=== PATIENT | female | born 1950 | race Caucasian/White ===

== ENCOUNTER → 2017-02-28 | Outpatient (CLI) | payer MEDICARE, MEDICAID ==
[~2017-02-28] MED LIST: CYANOCOBAL1000 MCG/M SC; DAYPRO600 M1 PO; GABAPENTIN300 MG PO; LEVOTHYROXIN0.137 MG PO; LISINOPRIL10 MG PO; MOTRIN800 MG PO; Motrin,Rufen800 MG PO; PREDNICOT20 MG PO; ROBAXIN750 MG PO; SYNTHROID,LEV100 MCG PO; ULTRAM50 MG PO; VICODIN 500 MG-1 TAB PO; VITAMIN D32000 IU PO; VOLTAREN50 M1 PO; ZITHROMAX Z PA250 MG PO
[2017-02-28 11:05] LABS: HEMATOCRIT 43.1 % (37.0-47.0); HEMOGLOBIN 13.5 g/dl (12.0-16.0); MEAN CORPUSCULAR HGB 28.2 pg (27.0-31.0); MEAN CORPUSCULAR HGB CONC 31.3 g/dl (33.0-37.0); MEAN PLATELET VOLUME 10.9 fl (9.6-12.3); RED BLOOD COUNT 4.79 10*6/uL (4.10-5.10); RED CELL DISTRI WIDTH 13.9 % (0-14.5)
[2017-02-28 11:21] LABS: ALBUMIN 3.6 gm/dl (3.1-4.5); ALKALINE PHOSPHATASE 71 U/L (45-117); BUN 15 mg/dl (7-24); CHLORIDE 108 mmol/L (98-107); CHOLESTEROL 172 mg/dL (<200); CREATININE 0.79 mg/dL (0.55-1.02); FREE T4 0.92 ng/dl (0.76-1.46); HDL CHOLESTEROL 47 mg/dl (40-60); LDL CHOLESTEROL 96 mg/dL (9-159); POTASSIUM 4.2 mmol/L (3.5-5.1); SGOT/AST 23 IU/L (3-35); SGPT/ALT 33 U/L (12-78); SODIUM 144 mmol/L (136-145); TRIGLYCERIDES 146 mg/dl (<150); VLDL CHOLESTEROL 29 mg/dL (6-40)
[2017-02-28 12:49] LABS: VITAMIN D, 25-HYDROXY 9.8 ng/mL (30-100)
== END | disposition home or self-care (01) ==
LOC: LAB 10:34
PROVIDERS: Family Medicine
DX: I10 Essential (primary) hypertension (principal); E03.9 Hypothyroidism, unspecified; E78.00 Pure hypercholesterolemia, unspecified; E55.9 Vitamin D deficiency, unspecified; E53.8 Deficiency of other specified B group vitamins

== ENCOUNTER → 2018-05-04 | Outpatient (CLI) | payer MEDICARE ==
[2018-05-04 09:47] LABS: HEMATOCRIT 41.9 % (37.0-47.0); HEMOGLOBIN 13.1 g/dl (12.0-16.0); MEAN CELL VOLUME 92.1 fl (81.0-99.0); MEAN CORPUSCULAR HGB 28.8 pg (27.0-31.0); MEAN CORPUSCULAR HGB CONC 31.3 g/dl (33.0-37.0); MEAN PLATELET VOLUME 11.1 fl (9.6-12.3); RED BLOOD COUNT 4.55 10*6/uL (4.10-5.10); RED CELL DISTRI WIDTH 14.1 % (0-14.5); WHITE BLOOD COUNT 7.5 10*3/uL (4.8-10.8)
[2018-05-04 10:18] LABS: ALBUMIN 3.4 gm/dl (3.1-4.5); BUN 20 mg/dl (7-24); CHLORIDE 107 mmol/L (98-107); CHOLESTEROL 166 mg/dL (<200); CREATININE 0.84 mg/dL (0.55-1.02); POTASSIUM 4.2 mmol/L (3.5-5.1); SGOT/AST 21 IU/L (3-35); SGPT/ALT 24 U/L (12-78); SODIUM 142 mmol/L (136-145)
[2018-05-04 10:24] LABS: ALKALINE PHOSPHATASE 75 U/L (45-117); FREE T4 1.16 ng/dl (0.76-1.46); HDL CHOLESTEROL 49 mg/dl (40-60); LDL CHOLESTEROL 95 mg/dL (9-159); TOTAL PROTEIN 7.1 gm/dL (6.4-8.2); TRIGLYCERIDES 112 mg/dl (<150); VLDL CHOLESTEROL 22 mg/dL (6-40)
== END | disposition home or self-care (01) ==
LOC: LAB 09:21
PROVIDERS: Family Medicine
DX: E03.9 Hypothyroidism, unspecified (principal); E55.9 Vitamin D deficiency, unspecified; E78.00 Pure hypercholesterolemia, unspecified; I10 Essential (primary) hypertension

== ENCOUNTER → 2019-04-23 | Outpatient (CLI) | payer MEDICARE ==
[2019-04-23 09:59] LABS: HEMATOCRIT 41.1 % (37.0-47.0); HEMOGLOBIN 12.4 g/dl (12.0-16.0); MEAN CELL VOLUME 93.6 fl (81.0-99.0); MEAN CORPUSCULAR HGB 28.2 pg (27.0-31.0); MEAN CORPUSCULAR HGB CONC 30.2 g/dl (33.0-37.0); MEAN PLATELET VOLUME 10.7 fl (9.6-12.3); RED BLOOD COUNT 4.39 10*6/uL (4.10-5.10); RED CELL DISTRI WIDTH 14.1 % (0-14.5); WHITE BLOOD COUNT 5.8 10*3/uL (4.8-10.8)
[2019-04-23 10:39] LABS: ALBUMIN 3.4 gm/dl (3.1-4.5); ALKALINE PHOSPHATASE 144 U/L (45-117); BUN 18 mg/dl (7-24); CHLORIDE 109 mmol/L (98-107); CHOLESTEROL 144 mg/dL (<200); CREATININE 0.79 mg/dL (0.55-1.02); SGOT/AST 12 IU/L (3-35); SGPT/ALT 23 U/L (12-78); SODIUM 144 mmol/L (136-145); TOTAL PROTEIN 6.9 gm/dL (6.4-8.2); TRIGLYCERIDES 78 mg/dl (<150); VLDL CHOLESTEROL 16 mg/dL (6-40)
[2019-04-23 10:40] LABS: HDL CHOLESTEROL 48 mg/dl (40-60); LDL CHOLESTEROL 80 mg/dL (9-159)
[2019-04-23 10:54] LABS: VITAMIN D, 25-HYDROXY 82.1 ng/mL (30-100)
== END | disposition home or self-care (01) ==
LOC: LAB 09:26
PROVIDERS: Nurse Practitioner Family
DX: E03.9 Hypothyroidism, unspecified (principal); D51.9 Vitamin B12 deficiency anemia, unspecified; E55.9 Vitamin D deficiency, unspecified

== ENCOUNTER → 2019-08-02 | Outpatient (CLI) | payer MEDICARE ==
[2019-08-02 11:35] LABS: HEMATOCRIT 42.4 % (37.0-47.0); MEAN CELL VOLUME 93.6 fl (81.0-99.0); MEAN CORPUSCULAR HGB 28.5 pg (27.0-31.0); MEAN CORPUSCULAR HGB CONC 30.4 g/dl (33.0-37.0); MEAN PLATELET VOLUME 10.6 fl (9.6-12.3); RED BLOOD COUNT 4.53 10*6/uL (4.10-5.10); RED CELL DISTRI WIDTH 13.7 % (0-14.5)
[2019-08-02 12:03] LABS: ALBUMIN 3.4 gm/dl (3.1-4.5); ALKALINE PHOSPHATASE 71 U/L (45-117); BUN 18 mg/dl (7-24); CHLORIDE 109 mmol/L (98-107); CREATININE 0.75 mg/dL (0.55-1.02); POTASSIUM 4.3 mmol/L (3.5-5.1); SGOT/AST 25 IU/L (3-35); SGPT/ALT 30 U/L (12-78); SODIUM 141 mmol/L (136-145); TOTAL PROTEIN 7.1 gm/dL (6.4-8.2)
[2019-08-02 12:11] LABS: FREE T4 1.17 ng/dl (0.76-1.46)
== END | disposition home or self-care (01) ==
LOC: LAB 11:12
PROVIDERS: Family Medicine
DX: E11.9 Type 2 diabetes mellitus without complications (principal); E55.9 Vitamin D deficiency, unspecified; E03.9 Hypothyroidism, unspecified

== ENCOUNTER → 2019-10-14 | Outpatient (CLI) | payer MEDICARE ==
[2019-10-14 11:41] LABS: ALBUMIN 3.4 gm/dl (3.1-4.5); ALKALINE PHOSPHATASE 79 U/L (45-117); BUN 15 mg/dl (7-24); CHLORIDE 110 mmol/L (98-107); CREATININE 0.86 mg/dL (0.55-1.02); POTASSIUM 4.6 mmol/L (3.5-5.1); SGOT/AST 14 IU/L (3-35); SGPT/ALT 20 U/L (12-78); SODIUM 140 mmol/L (136-145); TOTAL PROTEIN 6.9 gm/dL (6.4-8.2)
== END | disposition home or self-care (01) ==
LOC: LAB 10:23
PROVIDERS: Family Medicine
DX: I10 Essential (primary) hypertension (principal); E74.9 Disorder of carbohydrate metabolism, unspecified; Z79.899 Other long term (current) drug therapy

== ENCOUNTER → 2020-07-03 | Outpatient (CLI) | payer MEDICARE ==
[2020-07-03 11:09] LABS: HEMATOCRIT 44.4 % (37.0-47.0); MEAN CELL VOLUME 90.8 fl (81.0-99.0); MEAN CORPUSCULAR HGB 27.8 pg (27.0-31.0); MEAN CORPUSCULAR HGB CONC 30.6 g/dl (33.0-37.0); RED BLOOD COUNT 4.89 10*6/uL (4.10-5.10); RED CELL DISTRI WIDTH 13.7 % (0-14.5); WHITE BLOOD COUNT 5.1 10*3/uL (4.8-10.8)
[2020-07-03 11:37] LABS: ALBUMIN 3.5 gm/dl (3.1-4.5); BUN 12 mg/dl (7-24); CHLORIDE 109 mmol/L (98-107); CHOLESTEROL 143 mg/dL (<200); CREATININE 0.74 mg/dL (0.55-1.02); POTASSIUM 4.2 mmol/L (3.5-5.1); SGOT/AST 14 IU/L (3-35); SGPT/ALT 18 U/L (12-78); SODIUM 143 mmol/L (136-145); TOTAL PROTEIN 6.9 gm/dL (6.4-8.2); TRIGLYCERIDES 137 mg/dl (<150)
[2020-07-03 11:38] LABS: ALKALINE PHOSPHATASE 81 U/L (45-117); LDL CHOLESTEROL 77 mg/dL (9-159)
[2020-07-03 11:47] LABS: VITAMIN D, 25-HYDROXY 91.7 ng/mL (30-100)
== END | disposition home or self-care (01) ==
LOC: LAB 10:26
PROVIDERS: ATTEND Family Medicine
DX: I10 Essential (primary) hypertension (principal); E03.9 Hypothyroidism, unspecified; E55.9 Vitamin D deficiency, unspecified; E78.00 Pure hypercholesterolemia, unspecified; R53.83 Other fatigue

== ENCOUNTER 2020-07-17 09:07 | Emergency (ER) | payer MEDICARE ==
[~2020-07-17 09:07] MED LIST changes: -LISINOPRIL10 MG PO; +LISINOPRIL40 MG PO
[2020-07-17] MEDS ORDERED: PERCOCET 5-3251 EACH PO (12:46)
[2020-07-21] MEDS ORDERED: METFORMIN HYDR500 MG PO (11:39)
[2020-07-21] MEDS ORDERED: VITAMIN D250 MCG PO (11:40)
[2020-07-23] MEDS ORDERED: HYDROCODONE-AC1 EAC1 PO (12:10)
== END 2020-07-17 13:28 | disposition home or self-care (01) ==
LOC: ED 09:07
DX: S52.501A Unspecified fracture of the lower end of right radius, initial encounter for closed fracture (principal); I10 Essential (primary) hypertension; Z79.899 Other long term (current) drug therapy; Z88.5 Allergy status to narcotic agent; Z88.6 Allergy status to analgesic agent; Z90.49 Acquired absence of other specified parts of digestive tract; Z98.51 Tubal ligation status; Z98.890 Other specified postprocedural states; W01.0XXA Fall on same level from slipping, tripping and stumbling without subsequent striking against object, initial encounter; Y93.89 Activity, other specified; Y92.89 Other specified places as the place of occurrence of the external cause; Y99.8 Other external cause status

== ENCOUNTER → 2020-07-23 | Day surgery (SDC) | payer MEDICARE ==
[2020-07-21 12:19] LABS: BASO % 0.6 % (0.0-1.0); EOS # 0.2 10*3/uL (0.0-0.4); EOS % 2.6 % (1.0-4.0); HEMATOCRIT 40.9 % (37.0-47.0); LYMPH # 1.3 10*3/uL (1.3-4.4); LYMPH % 18.9 % (27.0-41.0); MEAN CELL VOLUME 90.3 fl (81.0-99.0); MEAN CORPUSCULAR HGB 27.8 pg (27.0-31.0); MEAN CORPUSCULAR HGB CONC 30.8 g/dl (33.0-37.0); MEAN PLATELET VOLUME 10.4 fl (9.6-12.3); MONO # 0.6 10*3/uL (0.1-1.0); NEUT # 4.6 10*3/uL (2.3-7.9); NEUT % 68.7 % (47.0-73.0); PLATELET COUNT AUTOMATED 235 10*3/uL (130-400); RED BLOOD COUNT 4.53 10*6/uL (4.10-5.10); RED CELL DISTRI WIDTH 14.2 % (0-14.5); WHITE BLOOD COUNT 6.7 10*3/uL (4.8-10.8)
[2020-07-21 12:34] LABS: BUN 13 mg/dl (7-24); CHLORIDE 108 mmol/L (98-107); CREATININE 0.79 mg/dL (0.55-1.02); POTASSIUM 4.2 mmol/L (3.5-5.1); SODIUM 143 mmol/L (136-145)
[~2020-07-23] VITALS: Ht 165.1 cm; Wt 106.1 kg
[~2020-07-23] MED LIST changes: +HYDROCODONE-AC1 EAC1 PO; +METFORMIN HYDR500 MG PO; +PERCOCET 5-3251 EACH PO; +VITAMIN D250 MCG PO
[2020-07-23 08:20] VITALS: BP 178/78
[2020-07-23 11:47] VITALS: BP 157/76
[2020-07-23 12:02] VITALS: BP 138/66
[2020-07-23 12:17] VITALS: BP 133/63
[2020-07-23 12:32] VITALS: BP 143/73
[2020-07-23 12:47] VITALS: BP 110/71
== END | disposition home or self-care (01) ==
LOC: SDC 07-21 08:00
PROVIDERS: ATTEND Orthopaedic Surgery
DX: S52.571A Other intraarticular fracture of lower end of right radius, initial encounter for closed fracture (principal); M85.80 Other specified disorders of bone density and structure, unspecified site; E03.9 Hypothyroidism, unspecified; I10 Essential (primary) hypertension; E11.9 Type 2 diabetes mellitus without complications; J45.909 Unspecified asthma, uncomplicated; E78.00 Pure hypercholesterolemia, unspecified; Z90.49 Acquired absence of other specified parts of digestive tract; Z90.89 Acquired absence of other organs; Z88.5 Allergy status to narcotic agent; Z88.8 Allergy status to other drugs, medicaments and biological substances; X58.XXXA Exposure to other specified factors, initial encounter; Y93.89 Activity, other specified; Y92.89 Other specified places as the place of occurrence of the external cause; Y99.8 Other external cause status; Z20.822 Contact with and (suspected) exposure to COVID-19

== ENCOUNTER → 2020-08-05 | Outpatient (CLI) | payer MEDICARE | END | disposition home or self-care (01) | LOC: RAD 00:15 | PROVIDERS: ATTEND Orthopaedic Surgery | DX: S52.571D Other intraarticular fracture of lower end of right radius, subsequent encounter for closed fracture with routine healing (principal); X58.XXXD Exposure to other specified factors, subsequent encounter ==

== ENCOUNTER → 2020-09-02 | Outpatient (CLI) | payer MEDICARE | END | disposition home or self-care (01) | LOC: RAD 00:32 | PROVIDERS: ATTEND Orthopaedic Surgery | DX: M81.0 Age-related osteoporosis without current pathological fracture (principal); M19.031 Primary osteoarthritis, right wrist; M25.831 Other specified joint disorders, right wrist; S52.571D Other intraarticular fracture of lower end of right radius, subsequent encounter for closed fracture with routine healing; Z98.890 Other specified postprocedural states; X58.XXXD Exposure to other specified factors, subsequent encounter ==

== ENCOUNTER → 2020-10-21 | Outpatient (CLI) | payer MEDICARE | END | disposition home or self-care (01) | LOC: ORTHO 00:16 | PROVIDERS: ATTEND Orthopaedic Surgery | DX: M19.031 Primary osteoarthritis, right wrist (principal); M81.8 Other osteoporosis without current pathological fracture; Z87.81 Personal history of (healed) traumatic fracture ==

== ENCOUNTER → 2020-11-10 | Outpatient (CLI) | payer MEDICARE | END | disposition home or self-care (01) | LOC: RAD 11-03 14:00 | PROVIDERS: ATTEND Orthopaedic Surgery | DX: M81.0 Age-related osteoporosis without current pathological fracture (principal); M85.80 Other specified disorders of bone density and structure, unspecified site; S52.571D Other intraarticular fracture of lower end of right radius, subsequent encounter for closed fracture with routine healing ==

== ENCOUNTER → 2020-11-13 | Outpatient (CLI) | payer MEDICARE ==
[2020-11-13 11:00] LABS: HEMATOCRIT 42.3 % (37.0-47.0); MEAN CELL VOLUME 91.2 fl (81.0-99.0); MEAN CORPUSCULAR HGB 28.4 pg (27.0-31.0); MEAN CORPUSCULAR HGB CONC 31.2 g/dl (33.0-37.0); MEAN PLATELET VOLUME 10.4 fl (9.6-12.3); RED BLOOD COUNT 4.64 10*6/uL (4.10-5.10); RED CELL DISTRI WIDTH 13.5 % (0-14.5); WHITE BLOOD COUNT 5.8 10*3/uL (4.8-10.8)
[2020-11-13 11:18] LABS: ALBUMIN 3.5 gm/dl (3.1-4.5); ALKALINE PHOSPHATASE 84 U/L (45-117); BUN 16 mg/dl (7-24); CHLORIDE 107 mmol/L (98-107); CHOLESTEROL 159 mg/dL (<200); CREATININE 0.79 mg/dL (0.55-1.02); FREE T4 1.18 ng/dl (0.76-1.46); LDL CHOLESTEROL 99 mg/dL (9-159); POTASSIUM 4.2 mmol/L (3.5-5.1); SGOT/AST 17 IU/L (3-35); SGPT/ALT 19 U/L (12-78); SODIUM 142 mmol/L (136-145); TOTAL PROTEIN 6.8 gm/dL (6.4-8.2); TRIGLYCERIDES 97 mg/dl (<150)
[2020-11-13 11:41] LABS: VITAMIN D, 25-HYDROXY 74.6 ng/mL (30-100)
== END | disposition home or self-care (01) ==
LOC: LAB 10:46
PROVIDERS: ATTEND Family Medicine
DX: I10 Essential (primary) hypertension (principal); E55.9 Vitamin D deficiency, unspecified; E03.9 Hypothyroidism, unspecified; M19.90 Unspecified osteoarthritis, unspecified site; R60.9 Edema, unspecified; E53.8 Deficiency of other specified B group vitamins

== ENCOUNTER 2021-02-23 17:23 | Emergency (ER) | payer MEDICARE | END 2021-02-23 20:21 | disposition home or self-care (01) | LOC: ED 17:23 | DX: S00.83XA Contusion of other part of head, initial encounter (principal); W18.39XA Other fall on same level, initial encounter; Y93.89 Activity, other specified; Y92.89 Other specified places as the place of occurrence of the external cause; Y99.8 Other external cause status ==

== ENCOUNTER → 2021-09-07 | Outpatient (CLI) | payer MEDICARE ==
[2021-09-07 10:08] LABS: HEMATOCRIT 43.2 % (37.0-47.0); MEAN CELL VOLUME 91.1 fl (81.0-99.0); MEAN CORPUSCULAR HGB 28.3 pg (27.0-31.0); MEAN PLATELET VOLUME 10.7 fl (9.6-12.3); RED BLOOD COUNT 4.74 10*6/uL (4.10-5.10); RED CELL DISTRI WIDTH 13.5 % (0-14.5); WHITE BLOOD COUNT 6.7 10*3/uL (4.8-10.8)
[2021-09-07 10:30] LABS: BUN 18 mg/dl (7-24); CHLORIDE 111 mmol/L (98-107); POTASSIUM 4.2 mmol/L (3.5-5.1); SGOT/AST 15 IU/L (3-35); SGPT/ALT 17 U/L (12-78); SODIUM 141 mmol/L (136-145)
[2021-09-07 10:38] LABS: ALKALINE PHOSPHATASE 70 U/L (45-117); CHOLESTEROL 133 mg/dL (<200); CREATININE 0.89 mg/dL (0.55-1.02); FREE T4 1.35 ng/dl (0.76-1.46); LDL CHOLESTEROL 70 mg/dL (9-159); TOTAL PROTEIN 6.5 gm/dL (6.4-8.2); TRIGLYCERIDES 112 mg/dl (<150)
[2021-09-07 11:05] LABS: VITAMIN D, 25-HYDROXY 78.9 ng/mL (30-100)
== END ==
LOC: LAB 09:42
PROVIDERS: ATTEND Family Medicine
DX: I10 Essential (primary) hypertension (principal); E11.9 Type 2 diabetes mellitus without complications; E03.9 Hypothyroidism, unspecified; E55.9 Vitamin D deficiency, unspecified; Z79.899 Other long term (current) drug therapy

== ENCOUNTER → 2021-12-20 | Outpatient (CLI) | payer MEDICARE ==
[2021-12-20 10:55] LABS: HEMATOCRIT 43.1 % (37.0-47.0); MEAN CELL VOLUME 93.7 fl (81.0-99.0); MEAN CORPUSCULAR HGB 29.3 pg (27.0-31.0); MEAN CORPUSCULAR HGB CONC 31.3 g/dl (33.0-37.0); MEAN PLATELET VOLUME 10.9 fl (9.6-12.3); RED BLOOD COUNT 4.6 10*6/uL (4.10-5.10); RED CELL DISTRI WIDTH 13.9 % (0-14.5)
[2021-12-20 11:14] LABS: BUN 15 mg/dl (7-24); CHLORIDE 111 mmol/L (98-107); CHOLESTEROL 150 mg/dL (<200); CREATININE 0.73 mg/dL (0.55-1.02); POTASSIUM 4.3 mmol/L (3.5-5.1); SGOT/AST 15 IU/L (3-35); SGPT/ALT 20 U/L (12-78); SODIUM 144 mmol/L (136-145); TRIGLYCERIDES 83 mg/dl (<150)
[2021-12-20 11:18] LABS: ALKALINE PHOSPHATASE 71 U/L (45-117); LDL CHOLESTEROL 91 mg/dL (9-159); TOTAL PROTEIN 6.7 gm/dL (6.4-8.2)
== END | disposition home or self-care (01) ==
LOC: LAB 10:28
PROVIDERS: ATTEND Family Medicine
DX: E74.9 Disorder of carbohydrate metabolism, unspecified (principal); E78.00 Pure hypercholesterolemia, unspecified; Z79.899 Other long term (current) drug therapy

== ENCOUNTER → 2022-01-19 | Outpatient (CLI) | payer MEDICARE | END | disposition home or self-care (01) | LOC: CARD 10:30 | PROVIDERS: ATTEND Family Medicine | DX: R06.09 Other forms of dyspnea (principal) ==

== ENCOUNTER → 2022-06-28 | Outpatient (CLI) | payer MEDICARE ==
[2022-06-28 11:22] LABS: HEMATOCRIT 42.1 % (37.0-47.0); MEAN CELL VOLUME 91.3 fl (81.0-99.0); MEAN CORPUSCULAR HGB 29.1 pg (27.0-31.0); MEAN CORPUSCULAR HGB CONC 31.8 g/dl (33.0-37.0); MEAN PLATELET VOLUME 10.8 fl (9.6-12.3); RED BLOOD COUNT 4.61 10*6/uL (4.10-5.10); RED CELL DISTRI WIDTH 13.8 % (0-14.5); WHITE BLOOD COUNT 6.1 10*3/uL (4.8-10.8)
[2022-06-28 12:09] LABS: ALKALINE PHOSPHATASE 66 U/L (46-116); BUN 17 mg/dl (9-23); CHLORIDE 106 mmol/L (98-107); CHOLESTEROL 163 mg/dL (<200); LDL CHOLESTEROL 101 mg/dL (9-159); POTASSIUM 4.2 mmol/L (3.4-5.1); SGPT/ALT 11 U/L (10-49); TOTAL PROTEIN 6.6 gm/dL (6.0-8.0); TRIGLYCERIDES 92 mg/dl (<150)
== END | disposition home or self-care (01) ==
LOC: LAB 10:54
PROVIDERS: ATTEND Family Medicine
DX: E74.9 Disorder of carbohydrate metabolism, unspecified (principal); E78.00 Pure hypercholesterolemia, unspecified; M19.90 Unspecified osteoarthritis, unspecified site; Z79.899 Other long term (current) drug therapy

== ENCOUNTER → 2022-12-12 | Outpatient (CLI) | payer MEDICARE ==
[2022-12-12 11:48] LABS: HEMATOCRIT 43.2 % (37.0-47.0); MEAN CELL VOLUME 94.3 fl (81.0-99.0); MEAN CORPUSCULAR HGB CONC 30.8 g/dl (33.0-37.0); MEAN PLATELET VOLUME 10.6 fl (9.6-12.3); RED BLOOD COUNT 4.58 10*6/uL (4.10-5.10); RED CELL DISTRI WIDTH 14.3 % (0-14.5); WHITE BLOOD COUNT 5.6 10*3/uL (4.8-10.8)
[2022-12-12 12:18] LABS: ALKALINE PHOSPHATASE 69 U/L (46-116); BUN 14 mg/dl (9-23); CHLORIDE 110 mmol/L (98-107); CHOLESTEROL 175 mg/dL (<200); FREE T4 1.07 ng/dl (0.89-1.76); LDL CHOLESTEROL 109 mg/dL (9-159); POTASSIUM 4.3 mmol/L (3.4-5.1); SGPT/ALT 16 U/L (10-49); TOTAL PROTEIN 6.6 gm/dL (6.0-8.0); TRIGLYCERIDES 97 mg/dl (<150)
== END | disposition home or self-care (01) ==
LOC: LAB 11:16
PROVIDERS: ATTEND Family Medicine
DX: E03.9 Hypothyroidism, unspecified (principal); E78.00 Pure hypercholesterolemia, unspecified; I10 Essential (primary) hypertension; G62.9 Polyneuropathy, unspecified

== ENCOUNTER → 2023-03-22 | Outpatient (CLI) | payer MEDICARE ==
[2023-03-22 11:53] LABS: MEAN CELL VOLUME 92.5 fl (81.0-99.0); MEAN CORPUSCULAR HGB 28.6 pg (27.0-31.0); MEAN CORPUSCULAR HGB CONC 30.9 g/dl (33.0-37.0); MEAN PLATELET VOLUME 10.7 fl (9.6-12.3); RED BLOOD COUNT 4.65 10*6/uL (4.10-5.10); RED CELL DISTRI WIDTH 14.2 % (0-14.5)
[2023-03-22 12:25] LABS: ALKALINE PHOSPHATASE 70 U/L (46-116); BUN 13 mg/dl (9-23); CHLORIDE 110 mmol/L (98-107); CHOLESTEROL 141 mg/dL (<200); FREE T4 1.14 ng/dl (0.89-1.76); LDL CHOLESTEROL 83 mg/dL (9-159); POTASSIUM 4.2 mmol/L (3.4-5.1); SGPT/ALT 13 U/L (5-49); TOTAL PROTEIN 6.4 gm/dL (6.0-8.0); TRIGLYCERIDES 103 mg/dl (<150)
[2023-03-22 12:35] LABS: VITAMIN D, 25-HYDROXY 48.2 ng/mL (30-100)
== END | disposition home or self-care (01) ==
LOC: LAB 11:22
PROVIDERS: ATTEND Family Medicine
DX: I10 Essential (primary) hypertension (principal); E78.00 Pure hypercholesterolemia, unspecified; E55.9 Vitamin D deficiency, unspecified; R53.83 Other fatigue; D51.9 Vitamin B12 deficiency anemia, unspecified; E03.9 Hypothyroidism, unspecified

== ENCOUNTER → 2023-07-26 | Outpatient (CLI) | payer MEDICARE ==
[2023-07-26 10:07] LABS: HEMATOCRIT 42.3 % (37.0-47.0); MEAN CORPUSCULAR HGB 29.1 pg (27.0-31.0); MEAN PLATELET VOLUME 10.4 fl (9.6-12.3); RED BLOOD COUNT 4.5 10*6/uL (4.10-5.10); RED CELL DISTRI WIDTH 13.8 % (0-14.5)
[2023-07-26 10:54] LABS: ALKALINE PHOSPHATASE 73 U/L (46-116); BUN 12 mg/dl (9-23); CHLORIDE 107 mmol/L (98-107); CHOLESTEROL 177 mg/dL (<200); FREE T4 1.23 ng/dl (0.89-1.76); LDL CHOLESTEROL 107 mg/dL (9-159); POTASSIUM 4.3 mmol/L (3.4-5.1); SGPT/ALT 14 U/L (5-49); TOTAL PROTEIN 6.5 gm/dL (6.0-8.0); TRIGLYCERIDES 144 mg/dl (<150)
== END | disposition home or self-care (01) ==
LOC: LAB 09:46
PROVIDERS: ATTEND Family Medicine
DX: I10 Essential (primary) hypertension (principal); E78.00 Pure hypercholesterolemia, unspecified; E74.9 Disorder of carbohydrate metabolism, unspecified; G60.9 Hereditary and idiopathic neuropathy, unspecified; E03.9 Hypothyroidism, unspecified

== ENCOUNTER → 2023-12-13 | Outpatient (CLI) | payer MEDICARE ==
[2023-12-13 12:16] LABS: HEMATOCRIT 41.8 % (37.0-47.0); MEAN CELL VOLUME 91.1 fl (81.0-99.0); MEAN CORPUSCULAR HGB 28.5 pg (27.0-31.0); MEAN CORPUSCULAR HGB CONC 31.3 g/dl (33.0-37.0); MEAN PLATELET VOLUME 10.5 fl (9.6-12.3); RED BLOOD COUNT 4.59 10*6/uL (4.10-5.10); RED CELL DISTRI WIDTH 13.6 % (0-14.5); WHITE BLOOD COUNT 5.5 10*3/uL (4.8-10.8)
[2023-12-13 13:41] LABS: ALKALINE PHOSPHATASE 84 U/L (46-116); BUN 14 mg/dl (9-23); CHLORIDE 106 mmol/L (98-107); CHOLESTEROL 141 mg/dL (<200); LDL CHOLESTEROL 85 mg/dL (9-159); SGPT/ALT 17 U/L (5-49); TOTAL PROTEIN 6.7 gm/dL (6.0-8.0); TRIGLYCERIDES 86 mg/dl (<150)
== END | disposition home or self-care (01) ==
LOC: LAB 11:54
PROVIDERS: ATTEND Family Medicine
DX: I10 Essential (primary) hypertension (principal); E78.00 Pure hypercholesterolemia, unspecified; E74.9 Disorder of carbohydrate metabolism, unspecified; Z79.899 Other long term (current) drug therapy

== ENCOUNTER → 2024-06-05 | Outpatient (CLI) | payer MEDICARE ==
[2024-06-05 11:29] LABS: HEMATOCRIT 43.1 % (37.0-47.0); MEAN CELL VOLUME 93.3 fl (81.0-99.0); MEAN CORPUSCULAR HGB 28.6 pg (27.0-31.0); MEAN CORPUSCULAR HGB CONC 30.6 g/dl (33.0-37.0); MEAN PLATELET VOLUME 10.1 fl (9.6-12.3); RED BLOOD COUNT 4.62 10*6/uL (4.10-5.10); RED CELL DISTRI WIDTH 14.1 % (0-14.5)
[2024-06-05 12:01] LABS: VITAMIN D, 25-HYDROXY 43.6 ng/mL (30-100)
[2024-06-05 12:02] LABS: ALKALINE PHOSPHATASE 68 U/L (46-116); BUN 11 mg/dl (9-23); CHLORIDE 105 mmol/L (98-107); CHOLESTEROL 166 mg/dL (<200); CPK 60 U/L (34-171); LDL CHOLESTEROL 97 mg/dL (9-159); POTASSIUM 4.7 mmol/L (3.4-5.1); SGPT/ALT 12 U/L (5-49); TOTAL PROTEIN 6.6 gm/dL (6.0-8.0); TRIGLYCERIDES 114 mg/dl (<150)
== END | disposition home or self-care (01) ==
LOC: LAB 11:06
PROVIDERS: ATTEND Family Medicine
DX: E03.9 Hypothyroidism, unspecified (principal); E55.9 Vitamin D deficiency, unspecified; R53.83 Other fatigue; R78.9 Finding of unspecified substance, not normally found in blood; E74.9 Disorder of carbohydrate metabolism, unspecified; Z79.899 Other long term (current) drug therapy

== ENCOUNTER → 2024-07-25 | Emergency (ER) | payer MEDICARE ==
[~2024-07-25] VITALS: Ht 167.6 cm; Wt 104.3 kg
[~2024-07-25] MED LIST changes: +Labetalol Hydrochloride 20 MG/4 ML SYR IV ONE; +NORVASC5 MG PO; +SODIUM CHLORIDE 0.9% 1,000 ML IV ONE; +amLODIPine besylate 10 MG TAB PO ONE
[2024-07-25 15:58] LABS: BASO # 0.1 10*3/uL (0.0-0.1); BASO % 0.8 % (0.0-1.0); EOS # 0.3 10*3/uL (0.0-0.4); EOS % 4.3 % (1.0-4.0); HEMATOCRIT 42.7 % (37.0-47.0); MEAN CELL VOLUME 92.4 fl (81.0-99.0); MEAN CORPUSCULAR HGB CONC 31.4 g/dl (33.0-37.0); MEAN PLATELET VOLUME 10.6 fl (9.6-12.3); MONO # 0.5 10*3/uL (0.1-1.0); MONO % 7.3 % (3.0-9.0); NEUT # 4.6 10*3/uL (2.3-7.9); NEUT % 69.9 % (47.0-73.0); PLATELET COUNT AUTOMATED 222 10*3/uL (130-400); RED BLOOD COUNT 4.62 10*6/uL (4.10-5.10); RED CELL DISTRI WIDTH 13.7 % (0-14.5); WHITE BLOOD COUNT 6.6 10*3/uL (4.8-10.8)
[2024-07-25 16:23] LABS: BUN 15 mg/dl (9-23); CHLORIDE 106 mmol/L (98-107); POTASSIUM 4.1 mmol/L (3.4-5.1)
== END ==
LOC: ED 15:21
PROVIDERS: Emergency Medicine
DX: I16.0 Hypertensive urgency (principal); E11.9 Type 2 diabetes mellitus without complications; I10 Essential (primary) hypertension; J45.909 Unspecified asthma, uncomplicated; Z79.899 Other long term (current) drug therapy; Z88.5 Allergy status to narcotic agent; Z90.49 Acquired absence of other specified parts of digestive tract; Z98.51 Tubal ligation status; Z98.890 Other specified postprocedural states

== ENCOUNTER → 2024-09-30 | Outpatient (CLI) | payer MEDICARE ==
[~2024-09-30] MED LIST changes: -Labetalol Hydrochloride 20 MG/4 ML SYR IV ONE; -SODIUM CHLORIDE 0.9% 1,000 ML IV ONE; -amLODIPine besylate 10 MG TAB PO ONE
[2024-09-30 10:54] LABS: BUN 18 mg/dl (9-23)
== END | disposition home or self-care (01) ==
LOC: LAB 09:46
PROVIDERS: ATTEND Internal Medicine
DX: I11.0 Hypertensive heart disease with heart failure (principal); I50.1 Left ventricular failure, unspecified; R07.9 Chest pain, unspecified; R60.9 Edema, unspecified